=== PATIENT | female | born 1935 | race Caucasian/White ===

== ENCOUNTER 2018-11-12 04:17 | Emergency (ER) | payer MEDICARE, OTHER ==
[~2018-11-12] VITALS: Ht 154.9 cm; Wt 45.8 kg
[~2018-11-12 04:17] MED LIST: AMOX500 PO; ATOR10 PO; FLAX PO; GLUC500 PO; GLUCHON PO; LEVSOD125 PO; MULVITMINF PO; [UNRECOGNIZED DRUG - OTHER] PO
[2018-11-12 05:53] LABS: BASOPHILS ABSOLUTE AUTO 0.05 K/mm3 (0.00-0.23); BASOPHILS PERCENT AUTO 1 % (0-2); EOSINOPHILS ABSOLUTE AUTO 0.12 K/mm3 (0.00-0.68); EOSINOPHILS PERCENT AUTO 3 % (0-6); Hematocrit 42.6 % (33.0-51.0); Hemoglobin 14.5 g/dL (11.5-16.0); IMMATURE GRAN ABSOLUTE AUTO 0.01 K/mm3 (0.00-0.10); IMMATURE GRAN PERCENT AUTO 0 % (0-1); LYMPHOCYTES ABSOLUTE AUTO 1.02 K/mm3 (0.84-5.20); LYMPHOCYTES PERCENT AUTO 22 % (21-46); MONOCYTES ABSOLUTE AUTO 0.48 K/mm3 (0.16-1.47); MONOCYTES PERCENT AUTO 10 % (4-13); Mean Corpuscular HGB 32.2 pg (26.0-34.0); Mean Corpuscular Volume 95 fL (80-100); Mean Platelet Volume 9.4 fL (9.1-12.4); NEUTROPHILS ABSOLUTE AUTO 3.02 K/mm3 (1.96-9.15); NEUTROPHILS PERCENT AUTO 64 % (41-73); Platelet Count 210 K/mm3 (150-400); RDW Coefficient Variation 12.1 % (11.7-14.2); RDW Standard Deviation 41.9 fL (35.1-46.3); Red Blood Cell Count 4.51 M/mm3 (3.80-5.20)
[2018-11-12 06:01] LABS: Alanine Aminotransfer (ALT/SGP 21 U/L (12-78); Albumin, Blood 3.6 g/dL (3.4-5.0); Albumin/Globulin Ratio 1.1 (0.8-1.8); Alk Phos 73 U/L (50-136); Anion Gap 6 mmol/L (6-16); Aspartate Aminotrans (AST/SGOT 22 U/L (12-37); Bilirubin, Total 0.6 mg/dL (0.1-1.0); Blood Urea Nitrogen 12 mg/dL (8-24); Bun/Creatinine Ratio 15.6 (12.0-20.0); CO2, Blood 25 mmol/L (21-32); Calcium, Blood 8.9 mg/dL (8.5-10.1); Chloride, Blood 110 mmol/L (98-108); Creatinine, Blood 0.77 mg/dL (0.40-1.00); Globulin, Blood 3.2 g/dL (2.2-4.0); Glomerular Filtration Rate >60 (60-); Glucose, Blood 101 mg/dL (70-99); Potassium, Blood 3.9 mmol/L (3.5-5.5); Sodium, Blood 141 mmol/L (136-145); Total Protein, Blood 6.8 g/dL (6.4-8.2); Troponin I <0.015 ng/mL (0.000-0.040)
[2018-11-12] MEDS ORDERED: PROPAFENONE HC PO (06:28)
== END 2018-11-12 06:48 | disposition home or self-care (01) ==
LOC: ER 04:17
PROVIDERS: Emergency Medicine
DX: I48.0 Paroxysmal atrial fibrillation (principal); Z79.899 Other long term (current) drug therapy
CPT/HCPCS: 36415; 71046; 80053; 84484; 85025; 93005; 93010; 99285-25; J7030

== ENCOUNTER → 2018-12-16 | Outpatient (CLI) | payer MEDICARE, OTHER ==
[~2018-12-16] MED LIST changes: +PROPAFENONE HC PO
[2018-12-16 17:09] LABS: Adenovirus F 40/41 Not Detected (NOT DETECT); Astrovirus Not Detected (NOT DETECT); Campylobacter Sp Not Detected (NOT DETECT); Cryptosporidium Not Detected (NOT DETECT); Cyclospora Cayetanensis Not Detected (NOT DETECT); E. Coli O157 Not Detected (NOT DETECT); Entamoeba Histolytica Not Detected (NOT DETECT); Enteroaggregative E. coli-EAEC Not Detected (NOT DETECT); Enteropathogenic E. coli-EPEC Not Detected (NOT DETECT); Enterotoxigenic E. coli-ETEC Not Detected (NOT DETECT); Giardia Lamblia Not Detected (NOT DETECT); Norovirus GI/GII Not Detected (NOT DETECT); Plesiomonas Shigelloides Not Detected (NOT DETECT); Rotavirus A Not Detected (NOT DETECT); Salmonella Sp Not Detected (NOT DETECT); Sapovirus Not Detected (NOT DETECT); Shiga Toxin-prod E. coli-STEC Not Detected (NOT DETECT); Shigella/Enteroin E. coli-EIEC Not Detected (NOT DETECT); Vibrio Cholerae Not Detected (NOT DETECT); Vibrio Sp Not Detected (NOT DETECT); Yersinia Enterocolitica Not Detected (NOT DETECT)
== END | disposition home or self-care (01) ==
LOC: LAB SHORT 09:07 → LAB 09:07
PROVIDERS: Internal Medicine Gastroenterology
DX: R19.7 Diarrhea, unspecified (principal); Z86.010 Personal history of colon polyps
CPT/HCPCS: 87507

== ENCOUNTER → 2019-04-20 | Outpatient (CLI) | payer MEDICARE, OTHER | END | disposition home or self-care (01) | LOC: LAB SHORT 07:55 → PLD 07:55 | DX: B35.1 Tinea unguium (principal); L60.2 Onychogryphosis | CPT/HCPCS: 88305; 88312 ==

== ENCOUNTER 2020-12-19 07:56 | Emergency (ER) | payer MEDICARE, BC ==
[~2020-12-19] VITALS: Ht 154.9 cm; Wt 45.4 kg
[2020-12-19] MEDS ORDERED: FLUO10 PO (08:33)
[2020-12-19] MEDS ORDERED: ELIQUIS2.5 M1 PO (08:33)
[2020-12-19 08:34] LABS: BASOPHILS ABSOLUTE AUTO 0.07 K/mm3 (0.00-0.23); BASOPHILS PERCENT AUTO 1 % (0-2); EOSINOPHILS ABSOLUTE AUTO 0.18 K/mm3 (0.00-0.68); EOSINOPHILS PERCENT AUTO 3 % (0-6); Hematocrit 48.1 % (33.0-51.0); Hemoglobin 16.3 g/dL (11.5-16.0); IMMATURE GRAN ABSOLUTE AUTO 0.03 K/mm3 (0.00-0.10); IMMATURE GRAN PERCENT AUTO 0 % (0-1); LYMPHOCYTES ABSOLUTE AUTO 0.99 K/mm3 (0.84-5.20); LYMPHOCYTES PERCENT AUTO 14 % (21-46); MONOCYTES ABSOLUTE AUTO 0.55 K/mm3 (0.16-1.47); MONOCYTES PERCENT AUTO 8 % (4-13); Mean Corpuscular HGB 31.9 pg (26.0-34.0); Mean Corpuscular HGB Conc 33.9 g/dL (31.5-36.5); Mean Corpuscular Volume 94 fL (80-100); Mean Platelet Volume 8.8 fL (9.1-12.4); NEUTROPHILS ABSOLUTE AUTO 5.52 K/mm3 (1.96-9.15); NEUTROPHILS PERCENT AUTO 75 % (41-73); Platelet Count 218 K/mm3 (150-400); RDW Coefficient Variation 12.2 % (11.7-14.2); RDW Standard Deviation 42.6 fL (35.1-46.3); Red Blood Cell Count 5.11 M/mm3 (3.80-5.20); White Blood Cell Count 7.34 K/mm3 (4.00-11.30)
[2020-12-19] MEDS ORDERED: LOSA50 PO (08:34)
[2020-12-19 08:57] LABS: Alanine Aminotransfer (ALT/SGP 28 U/L (12-78); Alk Phos 105 U/L (50-136); Anion Gap 6 mmol/L (6-16); Aspartate Aminotrans (AST/SGOT 23 U/L (12-37); Bilirubin, Total 0.5 mg/dL (0.1-1.0); Blood Urea Nitrogen 19 mg/dL (8-24); Bun/Creatinine Ratio 17.1 (12.0-20.0); CO2, Blood 27 mmol/L (21-32); Calcium, Blood 9.4 mg/dL (8.5-10.1); Chloride, Blood 107 mmol/L (98-108); Creatinine, Blood 1.11 mg/dL (0.40-1.00); Glomerular Filtration Rate 50 (60-); Glucose, Blood 148 mg/dL (70-99); Sodium, Blood 140 mmol/L (136-145); Troponin I <0.015 ng/mL (0.000-0.040)
== END 2020-12-19 09:45 | disposition home or self-care (01) ==
LOC: ER 07:56
PROVIDERS: Physician Assistant
DX: I48.91 Unspecified atrial fibrillation (principal); Z79.01 Long term (current) use of anticoagulants; Z79.899 Other long term (current) drug therapy
CPT/HCPCS: 36415; 71045; 80053; 84484; 85025; 93005; 93010; 96374; 99284-25; A9270; J7030

== ENCOUNTER 2020-12-24 10:37 | Emergency (ER) | payer MEDICARE, BC ==
[~2020-12-24] VITALS: Ht 154.9 cm; Wt 45.4 kg
[~2020-12-24 10:37] MED LIST changes: +ELIQUIS2.5 M1 PO; +FLUO10 PO; +LOSA50 PO
[2020-12-24] MEDS ORDERED: EUTHYROX125 MCG PO (11:24)
[2020-12-24] MEDS ORDERED: METO25ER PO (11:25)
[2020-12-24] MEDS ORDERED: MAGNESIUM OXID500 MG PO (11:27)
[2020-12-24] MEDS ORDERED: ATOR20 PO (11:27)
[2020-12-24 12:08] LABS: BASOPHILS ABSOLUTE AUTO 0.07 K/mm3 (0.00-0.23); BASOPHILS PERCENT AUTO 1 % (0-2); EOSINOPHILS ABSOLUTE AUTO 0.12 K/mm3 (0.00-0.68); EOSINOPHILS PERCENT AUTO 2 % (0-6); Hematocrit 46.8 % (33.0-51.0); Hemoglobin 15.5 g/dL (11.5-16.0); IMMATURE GRAN ABSOLUTE AUTO 0.03 K/mm3 (0.00-0.10); IMMATURE GRAN PERCENT AUTO 0 % (0-1); LYMPHOCYTES ABSOLUTE AUTO 1.31 K/mm3 (0.84-5.20); LYMPHOCYTES PERCENT AUTO 18 % (21-46); MONOCYTES ABSOLUTE AUTO 0.47 K/mm3 (0.16-1.47); MONOCYTES PERCENT AUTO 7 % (4-13); Mean Corpuscular HGB 31.8 pg (26.0-34.0); Mean Corpuscular HGB Conc 33.1 g/dL (31.5-36.5); Mean Corpuscular Volume 96 fL (80-100); Mean Platelet Volume 9.2 fL (9.1-12.4); NEUTROPHILS ABSOLUTE AUTO 5.22 K/mm3 (1.96-9.15); NEUTROPHILS PERCENT AUTO 72 % (41-73); Platelet Count 190 K/mm3 (150-400); RDW Coefficient Variation 12.4 % (11.7-14.2); RDW Standard Deviation 43.8 fL (35.1-46.3); Red Blood Cell Count 4.87 M/mm3 (3.80-5.20); White Blood Cell Count 7.22 K/mm3 (4.00-11.30)
[2020-12-24 12:23] LABS: Alanine Aminotransfer (ALT/SGP 34 U/L (12-78); Albumin, Blood 3.6 g/dL (3.4-5.0); Alk Phos 100 U/L (50-136); Anion Gap 6 mmol/L (6-16); Aspartate Aminotrans (AST/SGOT 25 U/L (12-37); Bilirubin, Total 0.4 mg/dL (0.1-1.0); Blood Urea Nitrogen 15 mg/dL (8-24); Bun/Creatinine Ratio 15.4 (12.0-20.0); CO2, Blood 24 mmol/L (21-32); Calcium, Blood 9.1 mg/dL (8.5-10.1); Chloride, Blood 109 mmol/L (98-108); Creatinine, Blood 0.97 mg/dL (0.40-1.00); Globulin, Blood 3.5 g/dL (2.2-4.0); Glomerular Filtration Rate 58 (60-); Glucose, Blood 136 mg/dL (70-99); Potassium, Blood 4.2 mmol/L (3.5-5.5); Sodium, Blood 139 mmol/L (136-145); Total Protein, Blood 7.1 g/dL (6.4-8.2); Troponin I <0.015 ng/mL (0.000-0.040)
[2020-12-24] MEDS ORDERED: ALDACTONE100 M1 PO (14:26)
== END 2020-12-24 14:50 | disposition home or self-care (01) ==
LOC: ER 10:37
PROVIDERS: Emergency Medicine
DX: I48.91 Unspecified atrial fibrillation (principal); E03.9 Hypothyroidism, unspecified; E78.5 Hyperlipidemia, unspecified; Z79.890 Hormone replacement therapy; Z79.899 Other long term (current) drug therapy
CPT/HCPCS: 36415; 80053; 84443; 84484; 85025; 93005; 93010; 96374; 99285-25; A9270

== ENCOUNTER 2021-02-21 06:31 | Emergency (ER) | payer MEDICARE, BC ==
[~2021-02-21] VITALS: Ht 154.9 cm; Wt 45.4 kg
[~2021-02-21 06:31] MED LIST changes: +ALDACTONE100 M1 PO; +ATOR20 PO; +EUTHYROX125 MCG PO; +MAGNESIUM OXID500 MG PO; +METO25ER PO
[2021-02-21] MEDS ORDERED: VALA500 PO (08:03)
[2021-02-21] MEDS ORDERED: Roxicodone5 MG PO (08:03)
== END 2021-02-21 08:14 | disposition home or self-care (01) ==
LOC: ER 06:31
DX: B02.9 Zoster without complications (principal); Z88.2 Allergy status to sulfonamides; Z88.1 Allergy status to other antibiotic agents; Z79.899 Other long term (current) drug therapy; Z79.01 Long term (current) use of anticoagulants
CPT/HCPCS: 93005; 93010; 99283-25

== ENCOUNTER 2023-02-05 02:44 | Inpatient (IN) | payer MEDICARE, BC ==
[~2023-02-05] VITALS: Ht 154.9 cm; Wt 45.0 kg
[~2023-02-05 02:44] MED LIST changes: +Roxicodone5 MG PO; +TORS10 PO; +VALA500 PO
[2023-02-05] MEDS ORDERED: SOAANZ20 M3 PO (03:09)
[2023-02-05] MEDS ORDERED: ATOR10 PO (03:10)
[2023-02-05] MEDS ORDERED: FLUO10 PO (03:10)
[2023-02-05 03:16] LABS: BASOPHILS ABSOLUTE AUTO 0.06 K/mm3 (0.00-0.23); BASOPHILS PERCENT AUTO 1 % (0-2); EOSINOPHILS ABSOLUTE AUTO 0.14 K/mm3 (0.00-0.68); EOSINOPHILS PERCENT AUTO 2 % (0-6); Hematocrit 44.2 % (33.0-51.0); Hemoglobin 15.3 g/dL (11.5-16.0); IMMATURE GRAN ABSOLUTE AUTO 0.04 K/mm3 (0.00-0.10); IMMATURE GRAN PERCENT AUTO 1 % (0-1); LYMPHOCYTES ABSOLUTE AUTO 1.38 K/mm3 (0.84-5.20); LYMPHOCYTES PERCENT AUTO 17 % (21-46); MONOCYTES ABSOLUTE AUTO 0.61 K/mm3 (0.16-1.47); MONOCYTES PERCENT AUTO 8 % (4-13); Mean Corpuscular HGB 33.5 pg (26.0-34.0); Mean Corpuscular HGB Conc 34.6 g/dL (31.5-36.5); Mean Corpuscular Volume 97 fL (80-100); Mean Platelet Volume 9.8 fL (9.1-12.4); NEUTROPHILS ABSOLUTE AUTO 5.84 K/mm3 (1.96-9.15); NEUTROPHILS PERCENT AUTO 72 % (41-73); Platelet Count 177 K/mm3 (150-400); RDW Coefficient Variation 13.5 % (11.7-14.2); RDW Standard Deviation 48.2 fL (35.1-46.3); Red Blood Cell Count 4.57 M/mm3 (3.80-5.20); White Blood Cell Count 8.07 K/mm3 (4.00-11.30)
[2023-02-05 03:28] LABS: Albumin, Blood 3.3 g/dL (3.4-5.0); Bun/Creatinine Ratio 24.2 (12.0-20.0); Calcium, Blood 8.9 mg/dL (8.5-10.1); Creatinine, Blood 0.91 mg/dL (0.40-1.00); Globulin, Blood 3.3 g/dL (2.2-4.0); Potassium, Blood 4.6 mmol/L (3.5-5.5); Total Protein, Blood 6.6 g/dL (6.4-8.2)
[2023-02-05] MEDS ORDERED: TIMOLOL MALEAT1 EACH BOTHEYES (08:02)
[2023-02-05] MEDS ORDERED: BROMFENAC SODI1.7 ML BOTHEYES (08:02)
[2023-02-05] MEDS ORDERED: CYCL0.05OP BOTHEYES (08:05)
[2023-02-05 08:18] LABS: International Normalized Ratio 1.14; Prothrombin Time Results 11.9 Sec (9.7-11.5)
[2023-02-05 09:39] VITALS: BP 141/91
[2023-02-05] MEDS ORDERED: MAGNESIUM OXID500 MG PO (09:48)
--- NOTE | 2023-02-05 10:00 | NUR ---
ASSUMED CARE: PT ARRIVED FROM ED VIA BED. PLACED ON TELE AND HR IS 80S IN AFLUTTER. ON RA. DENIES PAIN OR CONCERNS. RN LOGAN AT BEDSIDE PERFORMING ADMISSION PAPERWORK. PT DENIES DISTRESS. PT DENIES POSSESSION OF LIGHTERS, MATCHES, OR CIGARRETTES. NO ACUTE NEEDS AT THIS TIME. CALL LIGHT IN REACH.
[2023-02-05 11:46] VITALS: BP 122/80
--- NOTE | 2023-02-05 18:09 | NUR ---
SHIFT SUMMARY: PT IS CURRENTLY AFIB ON TELE IN LOW 100S. INDEPENDENT IN ROOM, ON ROOM AIR. RECIEVING BUMEX FOR DIURESIS. WORKED WITH PT/OT THIS SHIFT. DAUGHTER AT BEDSIDE. DENIES NEEDS OR CONCERNS AT THIS TIME.
[2023-02-05 20:00] VITALS: BP 129/83
--- NOTE | 2023-02-05 20:00 | NUR ---
ASSUMED CARE OF PT AT 1900. REPORT RECEIVED AT BEDSIDE. PT PRESENTS IN BED. ALERT AND ORIENTED. PLEASANT AND COOPERATIVE WITH CARE AND ASSESSMENT. STATES THAT SHE IS FEELING MUCH IMPROVED. HAS BEEN ABLE TO GET UP TO BATHROOM INDEPENDENTLY. NO COMPLAINTS OF DYSPNEA OR CHEST PAIN/PRESSURE. WILL REVIEW CHART AND PLAN OF CARE FOR THIS PT.
[2023-02-06] VITALS: BP 121/76
[2023-02-06 04:08] VITALS: BP 145/93
[2023-02-06 05:09] LABS: Hematocrit 43.4 % (33.0-51.0); Hemoglobin 14.9 g/dL (11.5-16.0); Mean Corpuscular HGB 32.6 pg (26.0-34.0); Mean Corpuscular HGB Conc 34.3 g/dL (31.5-36.5); Mean Corpuscular Volume 95 fL (80-100); Mean Platelet Volume 9.9 fL (9.1-12.4); Platelet Count 170 K/mm3 (150-400); RDW Coefficient Variation 13.4 % (11.7-14.2); RDW Standard Deviation 46.5 fL (35.1-46.3); Red Blood Cell Count 4.57 M/mm3 (3.80-5.20); White Blood Cell Count 5.66 K/mm3 (4.00-11.30)
[2023-02-06 05:29] LABS: Bilirubin, Total 0.9 mg/dL (0.1-1.0); Bun/Creatinine Ratio 21.3 (12.0-20.0); Calcium, Blood 8.7 mg/dL (8.5-10.1); Creatinine, Blood 1.08 mg/dL (0.40-1.00); Globulin, Blood 3.1 g/dL (2.2-4.0); Magnesium, Blood 2.1 mg/dL (1.6-2.4); Phosphorus, Blood 3.9 mg/dL (2.5-4.9); Total Protein, Blood 6.1 g/dL (6.4-8.2)
--- NOTE | 2023-02-06 05:58 | NUR ---
SHIFT SUMMARY/ASSUMPTION OF CARE A/OX4, IND IN ROOM. SPO2 >92% ON RA. TELE AFLUTTER WITH PACED BEATS IN THE 70-80S. DENIES CHEST PAIN/PRESSURE. VSS, NO ACUTE CHANGES AT THIS TIME. BED IN LOWEST POSITION WITH CALL LIGHT IN REACH. WILL CONTINUE TO MONITOR AND REPORT TO ONCOMING RN. FIRE AND IGNITION RISK ASSESSED, NONE NOTED, PT EDUCATED ON FIRE SAFETY.
[2023-02-06 07:38] VITALS: BP 121/71
--- NOTE | 2023-02-06 10:57 | NUR ---
UPDATE: PT ALERT AND ORIENTED, BP AND HR STABLE, AFEBRILE, SATS >98% ON ROOM AIR. RESPIRATIONS EVEN AND UNLABORED. PULSES STRONG AND EQUAL THROUGHOUT. PT WITH GOOD URINARY OUTPUT, ABLE TO AMBULATE IND TO AND FROM BATHROOM. AT BEDSIDE THIS AM. PLAN FOR D/C TOMORROW. WILL ADJUST MEDICATIONS. PT NOW MED WITH TELE. COLOR CHECKER NOTIFIED.
[2023-02-06 15:30] VITALS: BP 146/90
--- NOTE | 2023-02-06 17:04 | NUR ---
SHIFT SUMMARY: PT ALERT AND ORIENTED X4, ABLE TO FOLLOW COMMANDS AND MAKE NEEDS KNOWN. COOPERATIVE WITH CARE. BP AND HR STABLE, AFEBRILE, SATS >98% ON ROOM AIR, RESPIRATIONS EVEN AND UNLABORED. DENIES CP/PRESSURE/SOB. PT IND TO AND FROM BATHROOM. GOOD URINARY OUTPUT THIS SHIFT APPROX 800ML. ONE BM. PT WITH INCREASE DOSE OF METOPROLOL THIS AFTERNOON, TOLERATED WELL. MD AT BEDSIDE THIS AM, PLAN FOR D/C 02/07/23. PT MED WITH TELE STATUS, WILL BE MOVING TO [place] [id number] THIS EVENING. BED IN LOW, CALL LIGHT IN REACH, WILL REPORT TO MED RN. IGNITION RISK: PATIENT EDUCATED ON RISK REGARDING IGNITION SOURCES AND RISK OF INJURY WHILE OXYGEN IS IN USE. PT DENIES SMOKING AND VERBALIZES UNDERSTANING.
--- NOTE | 2023-02-06 17:17 | NUR ---
TRANSFER: REPORT CALLED TO FELICIANO Caldwell RN. PT TRANSFERRED TO ROOM 362 VIA WHEELCHAIR. ALL BELONINGS WITH PT
--- NOTE | 2023-02-06 17:56 | NUR ---
NOTE: PATIENT ARRIVES IN ROOM AT 1720 TRANSFER FROM PCU RM 6 FOR DX OF ACUTE CHF. PATIENT TRANSFERRED TO BED c SBA. ON TELE, A-FLUTTER HR IN THE 80'S BPM. LUNGS CLEAR/DIM T/O TO AUSCULTATION. PIV TO L FOREARM SALINE LOCKED. VITAL SIGNS REVIEWED. PATIENT A&OX4. PLEASANT AND COOPERATIVE c CARE. DENIES CP/PRESSURE, SOB, N/V AND GENERALIZED PAIN. CALL LIGHT IN REACH. PATIENT EDUCATED ON NON SMOKING POLICY, RISK FOR INJURY AND IGNITION SOURCES WHEN O2 IN USE. PATIENT DENIES SMOKING AND STATED UNDERSTANDING.
[2023-02-06 20:38] VITALS: BP 137/82
[2023-02-07 04:29] VITALS: BP 144/85
[2023-02-07 05:39] LABS: Albumin, Blood 3.1 g/dL (3.4-5.0); Anion Gap 4 mmol/L (6-16); Blood Urea Nitrogen 19 mg/dL (8-24); Bun/Creatinine Ratio 19.5 (12.0-20.0); CO2, Blood 30 mmol/L (21-32); Chloride, Blood 104 mmol/L (98-108); Creatinine, Blood 0.97 mg/dL (0.40-1.00); Glomerular Filtration Rate 57 (60-); Glucose, Blood 98 mg/dL (70-99); Magnesium, Blood 2.2 mg/dL (1.6-2.4); Phosphorus, Blood 4.2 mg/dL (2.5-4.9); Potassium, Blood 4.4 mmol/L (3.5-5.5); Sodium, Blood 138 mmol/L (136-145)
--- NOTE | 2023-02-07 06:41 | NUR ---
SHIFT SUMMARY NO EVENTS OVERNIGHT, STATE SHE FEELS MUCH BETTER. Q1H FIRE SAFETY CHECKS COMPLETED
[2023-02-07 07:57] VITALS: BP 148/88
[2023-02-07] MEDS ORDERED: PRINIVIL5 M1 PO (11:47)
[2023-02-07 12:33] VITALS: BP 108/89
--- NOTE | 2023-02-07 14:25 | NUR ---
SHIFT/DISCHARGE SUMMARY: PATIENT A&OX4. PLEASANT AND COOPERATIVE c CARE. DENIES CP/PRESSURE, SOB, N/V, GENERALIZED PAIN. ON TELE, A-FLUTTER HR IN THE 90'S BPM c OCCASIONAL PVC/VENTRICULAR PACED. LUNGS CLEAR/DIM T/O TO AUSCULTATION. PATIENT WORK c PT MOBILITY, AMBULATES IN HALLWAY AND BACK IN ROOM WITHOUT DIFFICULTIES. PATIENT RECEIVED SCHEDULED MEDS PER EMAR. VITAL SIGNS REVIEWED. PIV TO L FOREARM DC'D. PATIENT EDUCATED ON NON SMOKING POLICY, RISK OF INJURY AND IGNITION SOURCES WHEN O2 IN USE. PATIENT DENIES SMOKING AND VERVALIZED UNDERSTANDING. PATIENT DISCHARGE HOME. DISCHARGE INSTRUCTIONS PACKET GIVEN TO PATIENT. EDUCATE PATIENTB REGARDING ADMITTING DX, S/S, TX, SELF CARE, DAILY WEIGHT, AND NEW PRESCRIBED MEDICATION. PATIENT STATED UNDERSTANDING AND NO FURTHER QUESTIONS. RX WAS FAXED TO PATIENT PREFERRED PHARMACY ([facility]). ALL PATIENT PERSONAL BELONGINGS WERE SENT HOME c THE PATIENT. PATIENT LEFT THE ROOM AT AROUND 1350 AND TRANSPORTED VIA WHEELCHAIR BY [employer] STAFF KERVIN SCHWARTZ TO PATIENT ENTRANCE.
== END 2023-02-07 13:45 | disposition home health service (06) | DRG 291 ==
LOC: ER 02:44 → PCU 07:23 → MEDS 02-06 17:20 → ENPENDDIS 02-07 11:09 → MEDS 02-07 13:45
PROVIDERS: Student in an Organized Health Care Education/Training Program; ADMIT Internal Medicine
DX: I11.0 Hypertensive heart disease with heart failure (principal); I50.23 Acute on chronic systolic (congestive) heart failure; I48.20 Chronic atrial fibrillation, unspecified; I42.0 Dilated cardiomyopathy; R74.01 Elevation of levels of liver transaminase levels; K76.1 Chronic passive congestion of liver; E78.5 Hyperlipidemia, unspecified; E03.9 Hypothyroidism, unspecified; F32.A Depression, unspecified; I08.3 Combined rheumatic disorders of mitral, aortic and tricuspid valves; Z95.0 Presence of cardiac pacemaker; Z88.2 Allergy status to sulfonamides; Z88.1 Allergy status to other antibiotic agents; Z79.01 Long term (current) use of anticoagulants; Z79.890 Hormone replacement therapy; Z79.899 Other long term (current) drug therapy; Z98.890 Other specified postprocedural states
CPT/HCPCS: 36415; 71045; 80053; 80069; 83735; 83880; 84100; 84443; 84484; 85025; 85027; 85610; 85730; 93005; 93010; 93306; 96374; 96375; 96376; 97110; 97110-CQ; 97116; 97116-CQ; 97161; 97165; 97530; 99285-25; A9270; J1940

== ENCOUNTER 2023-08-27 07:48 | Emergency (ER) | payer MEDICARE, BC ==
[~2023-08-27] VITALS: Ht 152.4 cm; Wt 44.5 kg
[~2023-08-27 07:48] MED LIST changes: +BROMFENAC SODI1.7 ML BOTHEYES; +CYCL0.05OP BOTHEYES; +PRINIVIL5 M1 PO; +SOAANZ20 M3 PO; +TIMOLOL MALEAT1 EACH BOTHEYES
[2023-08-27 10:46] LABS: Source, Urine Clean Catch
[2023-08-27 11:27] LABS: Appearance, Urine Clear (Clear); Bilirubin, Urine Neg (Neg); Blood, Urine Neg (Neg); Color, Urine Yellow (P-Yellow); Glucose Qualitative, Urine Neg (Neg); Ketones, Urine Neg (Neg); Leukocyte Esterase, Urine Neg (Neg); Nitrite, Urine Neg (Neg); Protein, Urine Neg (Neg); Specific Gravity, Urine 1.015 (1.003-1.022); Urobilinogen, Urine NORM (Normal)
[2023-08-27 13:02] VITALS: BP 142/85
== END 2023-08-27 13:03 | disposition home or self-care (01) ==
LOC: ER 07:48
PROVIDERS: Physician Assistant
DX: M25.551 Pain in right hip (principal); R10.31 Right lower quadrant pain; I10 Essential (primary) hypertension; I48.91 Unspecified atrial fibrillation; E78.5 Hyperlipidemia, unspecified; E03.9 Hypothyroidism, unspecified; Z79.01 Long term (current) use of anticoagulants; Z79.899 Other long term (current) drug therapy; Z88.1 Allergy status to other antibiotic agents; Z88.2 Allergy status to sulfonamides
CPT/HCPCS: 72192; 73502; 81003; 99284-25

== ENCOUNTER → 2023-10-13 | Outpatient (CLI) | payer MEDICARE, BC | LOC: LAB 20:04 → LAB SHORT 20:04 | DX: R05.1 Acute cough (principal) | CPT/HCPCS: 87070; 87205 ==

== ENCOUNTER 2023-11-07 14:19 | Emergency (ER) | payer MEDICARE, BC ==
[~2023-11-07] VITALS: Ht 152.4 cm; Wt 43.1 kg
[2023-11-07 15:06] LABS: BASOPHILS ABSOLUTE AUTO 0.05 K/mm3 (0.00-0.23); BASOPHILS PERCENT AUTO 1 % (0-2); EOSINOPHILS ABSOLUTE AUTO 0.13 K/mm3 (0.00-0.68); EOSINOPHILS PERCENT AUTO 2 % (0-6); Hematocrit 38.3 % (33.0-51.0); Hemoglobin 12.7 g/dL (11.5-16.0); IMMATURE GRAN ABSOLUTE AUTO 0.03 K/mm3 (0.00-0.10); IMMATURE GRAN PERCENT AUTO 0 % (0-1); LYMPHOCYTES ABSOLUTE AUTO 1.24 K/mm3 (0.84-5.20); LYMPHOCYTES PERCENT AUTO 15 % (21-46); MONOCYTES ABSOLUTE AUTO 0.56 K/mm3 (0.16-1.47); MONOCYTES PERCENT AUTO 7 % (4-13); Mean Corpuscular HGB 33.4 pg (26.0-34.0); Mean Corpuscular HGB Conc 33.2 g/dL (31.5-36.5); Mean Corpuscular Volume 101 fL (80-100); Mean Platelet Volume 9.2 fL (9.1-12.4); NEUTROPHILS ABSOLUTE AUTO 6.05 K/mm3 (1.96-9.15); NEUTROPHILS PERCENT AUTO 75 % (41-73); Platelet Count 245 K/mm3 (150-400); RDW Coefficient Variation 13.7 % (11.7-14.2); RDW Standard Deviation 51.1 fL (35.1-46.3); White Blood Cell Count 8.06 K/mm3 (4.00-11.30)
[2023-11-07 15:14] LABS: Albumin/Globulin Ratio 0.7 (0.8-1.8); Bilirubin, Total 0.7 mg/dL (0.1-1.0); Bun/Creatinine Ratio 20.2 (12.0-20.0); Calcium, Blood 8.3 mg/dL (8.5-10.1); Creatinine, Blood 0.69 mg/dL (0.40-1.00); Globulin, Blood 4.6 g/dL (2.2-4.0); Potassium, Blood 3.4 mmol/L (3.5-5.5); Total Protein, Blood 7.6 g/dL (6.4-8.2)
[2023-11-07 15:52] VITALS: BP 134/80
[2023-11-07 16:03] LABS: Thyroid Stimulating Hormone 0.823 uIU/mL (0.360-4.800)
== END 2023-11-07 16:25 | disposition home or self-care (01) ==
LOC: ER 14:19
PROVIDERS: Emergency Medicine
DX: J20.9 Acute bronchitis, unspecified (principal); I48.20 Chronic atrial fibrillation, unspecified; E87.6 Hypokalemia; Z88.2 Allergy status to sulfonamides; Z88.1 Allergy status to other antibiotic agents; Z79.899 Other long term (current) drug therapy; E03.9 Hypothyroidism, unspecified; I48.91 Unspecified atrial fibrillation; I10 Essential (primary) hypertension; E78.5 Hyperlipidemia, unspecified
CPT/HCPCS: 71045; 80053; 83880; 84443; 84484; 85025; 93005; 93010; 99285-25

== ENCOUNTER → 2023-11-08 | Outpatient (CLI) | payer MEDICARE, BC | LOC: LAB 21:00 → LAB SHORT 21:00 | DX: R05.1 Acute cough (principal) | CPT/HCPCS: 87070; 87205 ==

== ENCOUNTER 2025-01-14 17:44 | Emergency (ER) | payer MEDICARE, BC ==
[~2025-01-14] VITALS: Ht 152.4 cm; Wt 44.5 kg
[2025-01-14 18:49] LABS: BASOPHILS ABSOLUTE AUTO 0.07 K/mm3 (0.00-0.23); BASOPHILS PERCENT AUTO 1 % (0-2); EOSINOPHILS ABSOLUTE AUTO 0.17 K/mm3 (0.00-0.68); EOSINOPHILS PERCENT AUTO 2 % (0-6); Hematocrit 41.8 % (33.0-51.0); Hemoglobin 14.6 g/dL (11.5-16.0); IMMATURE GRAN ABSOLUTE AUTO 0.02 K/mm3 (0.00-0.10); IMMATURE GRAN PERCENT AUTO 0 % (0-1); LYMPHOCYTES ABSOLUTE AUTO 1.22 K/mm3 (0.84-5.20); LYMPHOCYTES PERCENT AUTO 12 % (21-46); MONOCYTES ABSOLUTE AUTO 0.73 K/mm3 (0.16-1.47); MONOCYTES PERCENT AUTO 7 % (4-13); Mean Corpuscular HGB Conc 34.9 g/dL (31.5-36.5); Mean Corpuscular Volume 95 fL (80-100); NEUTROPHILS ABSOLUTE AUTO 7.93 K/mm3 (1.96-9.15); NEUTROPHILS PERCENT AUTO 78 % (41-73); NRBC ABSOLUTE 0.00 K/mm3 (0.00-0.02); NRBC Auto 0.0 /100 WBC (0.0-0.2); Platelet Count 252 K/mm3 (150-400); RDW Coefficient Variation 12.2 % (11.7-14.2); RDW Standard Deviation 42.7 fL (35.1-46.3)
[2025-01-14 19:21] LABS: Alanine Aminotransfer (ALT/SGP 28.0 U/L (12-78); Albumin, Blood 3.7 g/dL (3.4-5.0); Albumin/Globulin Ratio 0.8 (0.8-1.8); Anion Gap 10.0 mmol/L (3-11); Aspartate Aminotrans (AST/SGOT 28.0 U/L (12-37); Bilirubin, Total 0.4 mg/dL (0.1-1.0); Blood Urea Nitrogen 24.0 mg/dL (8-24); CO2, Blood 30.0 mmol/L (21-32); Calcium, Blood 9.6 mg/dL (8.5-10.1); Chloride, Blood 96.0 mmol/L (98-108); Creatinine, Blood 0.89 mg/dL (0.40-1.00); Globulin, Blood 4.4 g/dL (2.2-4.0); Glucose, Blood 115.0 mg/dL (70-99); Potassium, Blood 4.0 mmol/L (3.5-5.5); Sodium, Blood 132.0 mmol/L (136-145); Total Protein, Blood 8.1 g/dL (6.4-8.2)
[2025-01-14 19:29] LABS: Source, Urine Clean Catch
[2025-01-14 19:36] LABS: Bilirubin, Urine Neg (Neg); Color, Urine Yellow (P-Yellow); Glucose Qualitative, Urine Neg (Neg); Ketones, Urine Neg (Neg); Leukocyte Esterase, Urine Neg (Neg); Protein, Urine Neg (Neg); Specific Gravity, Urine 1.010 (1.003-1.022); Urobilinogen, Urine NORM (Normal)
[2025-01-14 20:45] VITALS: BP 138/77
== END 2025-01-14 21:06 | disposition home or self-care (01) ==
LOC: ER 17:44
PROVIDERS: Student in an Organized Health Care Education/Training Program
DX: R42 Dizziness and giddiness (principal); E03.9 Hypothyroidism, unspecified; I48.91 Unspecified atrial fibrillation; E78.5 Hyperlipidemia, unspecified; I11.0 Hypertensive heart disease with heart failure; I50.9 Heart failure, unspecified; Z79.899 Other long term (current) drug therapy; Z88.2 Allergy status to sulfonamides; Z88.1 Allergy status to other antibiotic agents
CPT/HCPCS: 71046; 80053; 81003; 83690; 83880; 84484; 85025; 93005; 93010; 99284-25

== ENCOUNTER 2025-02-02 07:55 | Day surgery (SDC) | payer MEDICARE, BC ==
[~2025-02-02] VITALS: Ht 154.9 cm; Wt 44.2 kg
[2025-02-02] MEDS ORDERED: LOSA25 PO (08:20)
[2025-02-02] MEDS ORDERED: CeFAZolin Sodium 2,000 MG VIAL ONE (08:40)
--- NOTE | 2025-02-02 08:56 | NUR ---
02/02/25 0856 SHERRI POSEY pt ready for or, daughter at bedside. engaged in pre op/post op teaching and all questions asked and answered. call light in reach.
[2025-02-02] MEDS ORDERED: Lidocaine HCl 2% 10 ML SDA ONE (09:13)
[2025-02-02 10:47] VITALS: BP 153/77
--- NOTE | 2025-02-02 10:47 | NUR ---
02/02/25 1047 Deneen Cornell DAUGHTER BROUGHT TO BEDSIDE
== END 2025-02-02 11:26 | disposition home or self-care (01) ==
LOC: ORSCSDS 07:55
PROVIDERS: Orthopaedic Surgery
PROC: 0LS70ZZ Reposition Right Hand Tendon, Open Approach (ICD-10-PCS; principal; 2025-02-02 09:30)
DX: M66.241 Spontaneous rupture of extensor tendons, right hand (principal); J44.9 Chronic obstructive pulmonary disease, unspecified; I48.91 Unspecified atrial fibrillation; F32.A Depression, unspecified; E03.9 Hypothyroidism, unspecified; I10 Essential (primary) hypertension; Z95.0 Presence of cardiac pacemaker; Z79.01 Long term (current) use of anticoagulants; Z79.899 Other long term (current) drug therapy
CPT/HCPCS: J0690; J2003; J2704; J7120